=== PATIENT | male | born 1945 | race Caucasian/White ===

== ENCOUNTER → 2016-08-12 | Outpatient (CLI) | payer MEDICARE ==
[~2016-08-12] MED LIST: ALBU6.7H INH; ASPI81CH CHEW; ASPI81TA82 PO; B COTAB7 PO; BACT800T5 PO; BUME2TAB PO; BUSP30TA PO; CARA0.5C; DICL1GEL7 TOPICAL; DICLCRY TOPICAL; DUONI NEB; EQL400TA PO; FLUT1INH7 INH; FOLI400T PO; GLIP5 PO; GLIP5TAB8 PO; GLUC1000 PO; IPRASOL INH; JANT2.5T PO; LACTCAP8 PO; LORTA5 PO; LOSA25TA PO; LOSA25TA31 PO; METF1000 PO; METO100T PO; METO50TA PO; METO5TAB3 PO; METO5TAB46 PO; MONT10 PO; MONT10TA4 PO; MULT-315 PO; MULTTAB50 PO; OMEP20TA PO; PANT40TA3 PO; POTA-243 PO; POTA10CA PO; PROBCAP4 PO; PROT40TA PO; ROSU1TAB8 PO; ROSU20 PO; SYMB160A INH; TIZA4 PO; VITA250T3 PO; VITACAP7 PO; WARF-23 PO; WARF2.5T40 PO; WARF5TAB PO; WELL150T PO; ZOFR8TAB PO
--- NOTE | 2016-08-19 10:43 | RSPPFT ---
DATE OF PROCEDURE: 08/12/16 COMMENTS: VOLUMES DYNAMIC: FVC and FEV1 mildly reduced. STATIC: FRC, TLC mildly reduced; RV normal. FLOWS: FEV1% mildly reduced; FEF 25-75 moderately reduced. DIFFUSION: Moderately reduced. FLOW VOLUME LOOP: Pattern of variable intrathoracic airways obstruction. IMPRESSION: Mild obstructive ventilatory defect with a mild to moderate reduction in diffusion and no significant hyperinflation. A mild co-existent restrictive defect is present and no improvement post-bronchodilator.
== END ==
LOC: HRSP 07:55
PROVIDERS: ATTEND Internal Medicine
DX: J45.909 Unspecified asthma, uncomplicated (principal); R05 Cough
CPT/HCPCS: 94060; 94620; 94726; 94729; 95012

== ENCOUNTER 2016-08-23 21:13 | Emergency (ER) | payer MEDICARE ==
[~2016-08-23] VITALS: Ht 188 cm; Wt 100.0 kg
[~2016-08-23 21:13] MED LIST changes: -ASPI81CH CHEW; -BACT800T5 PO; -BUSP30TA PO; -CARA0.5C; -DICL1GEL7 TOPICAL; -FLUT1INH7 INH; -FOLI400T PO; -GLIP5TAB8 PO; -IPRASOL INH; -JANT2.5T PO; -LACTCAP8 PO; -LOSA25TA PO; -METF1000 PO; -METO50TA PO; -METO5TAB3 PO; -MONT10TA4 PO; -MULT-315 PO; -OMEP20TA PO; -PANT40TA3 PO; -POTA10CA PO; -ROSU1TAB8 PO; -VITA250T3 PO; -VITACAP7 PO; -WARF-23 PO
[2016-08-23 21:15] VITALS: BP 146/74; PULSE 72; RESP 16; TEMP 97.3; O2SAT 94
[2016-08-23] MEDS ORDERED: METO5TAB3 PO (22:18)
[2016-08-23] MEDS ORDERED: GLIP5TAB8 PO (22:18)
[2016-08-23] MEDS ORDERED: BUSP30TA PO (22:18)
[2016-08-23] MEDS ORDERED: JANT2.5T PO (22:18)
[2016-08-23] MEDS ORDERED: BUME2TAB PO (22:18)
[2016-08-23] MEDS ORDERED: ASPI81CH CHEW (22:18)
[2016-08-23] MEDS ORDERED: FOLI400T PO (22:27)
[2016-08-23] MEDS ORDERED: MONT10TA4 PO (22:27)
[2016-08-23] MEDS ORDERED: CARA0.5C (22:27)
[2016-08-23] MEDS ORDERED: VITA250T3 PO (22:27)
[2016-08-23] MEDS ORDERED: POTA10CA PO (22:27)
[2016-08-23] MEDS ORDERED: IPRASOL INH (22:27)
[2016-08-23] MEDS ORDERED: METO50TA PO (22:27)
[2016-08-23] MEDS ORDERED: DICL1GEL7 TOPICAL (22:27)
[2016-08-23] MEDS ORDERED: MULT-315 PO (22:27)
[2016-08-23] MEDS ORDERED: LOSA25TA PO (22:27)
[2016-08-23] MEDS ORDERED: FLUT1INH7 INH (22:27)
[2016-08-23] MEDS ORDERED: ALBU6.7H INH (22:27)
[2016-08-23] MEDS ORDERED: OMEP20TA PO (22:27)
[2016-08-23] MEDS ORDERED: LACTCAP8 PO (22:27)
[2016-08-23] MEDS ORDERED: VITACAP7 PO (22:27)
[2016-08-23] MEDS ORDERED: PANT40TA3 PO (22:27)
[2016-08-23] MEDS ORDERED: ROSU1TAB8 PO (22:27)
[2016-08-23] MEDS ORDERED: BACT800T5 PO (22:30)
--- NOTE | 2016-08-23 22:35 | PD ---
HPI Chief Complaint: Injury Time Seen by Provider: 22:30 Travel History International Travel<30 days: No Contact w/Intl Traveler<30days: No Traveled to known affect area: No History of Present Illness HPI 70-year-old male that presents to the ED for evaluation of possible laceration to the right foot. Per patient he is a diabetic and he has neuropathy. Per patient he went to his normal occurrence on his diabetic shoes and when he was going to bed tonight he noticed that he had a little bleeding. Patient noted that he had a small cut on the dorsal aspect of his foot that was bleeding. He denies any actual injury. He denies any foreign body. He denies any pain. He states that he was concerned because of the bleeding. He does take Coumadin. He denies any other injuries. Up-to-date with his tetanus. 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 PFSH Past Medical History Hx Anticoagulant Therapy: Yes Arthritis: No Asthma: Yes Atrial Fibrillation: Yes Bipolar Disorder: Yes Anxiety: Yes Depression: Yes Heart Rhythm Problems: Yes Cancer: Yes (SKIN CANCER LEFT CHEEK 2013) Cardiac Catheterization: Yes (STENTS PLACED) Cardiovascular Problems: Yes (IN , MITRAL VALVE REPLACEMENT, CABG) High Cholesterol: Yes Chemotherapy: No Chest Pain: Yes Congestive Heart Failure: Yes COPD: Yes Diabetes: Yes (NON INSULIN DEPENDENT) Patient Takes Glucophage: Yes Diminished Hearing: Yes Endocrine: Yes Gastrointestinal Disorders: Yes (PAST LIVER ABNORMALITIES FROM DRINKING, PROBLEMS RESOLVE) GERD: No Hiatal Hernia: No Hypertension: Yes Immune Disorder: No Implanted Vascular Access Dvce: Yes Musculoskeletal: Yes (LT WRIST PAIN, ARTHRITIS) Neurologic: Yes (DIABETIC FOOT NEUROPATHY TOMAS.) Psychiatric: Yes (BIPOLAR--DX 1978) Respiratory: Yes (COPD, ASTHMA, COUGH) Immunizations Current: Yes Myocardial Infarction: Yes Radiation Therapy: No Thyroid Disease: No Ulcer: No Past Surgical History Abdominal Surgery: Yes (HERNIA REPAIR 2006) Body Medical Devices: MITRAL VALVE Cardiac Surgery: Yes (RWilbur VILLANUEVAARY BIPASS ) Coronary Artery Bypass Graft: Yes (X2; 2002) Joint Replacement: No Oral Surgery: Yes (#3 MOLAR EXTRACTED, HOLE IN SINUS, PAST INFECTION IN SINUSES ) Pacemaker: Yes (rt chest, [facility] COPY ON CHART) Thoracic Surgery: Yes Valve Replacement: Yes (MITRAL X2) Other Surgery: Yes (HERNIAS, BROKE R. LEG ) Social History Alcohol Use: No Tobacco Use: No Substance Use: No Allergies-Medications (Allergen,Severity, Reaction): Coded Allergies: Morphine (Verified Adverse Reaction, Severe, Nausea/Vomiting, 08/23/16) Carvedilol (Verified Adverse Reaction, Intermediate, Vertigo, 08/23/16) Reported Meds & Prescriptions Reported Meds & Active Scripts Active Reported Carac (Fluorouracil (Topical)) 0.5 % Cre Diclofenac Topical 1% Gel 1 Applic TOPICAL QID Duoneb (Ipratropium-Albuterol Neb) 0.5-2.5 Mg/3 Ml Neb 1 Nebule INH DAILY Proventil Hfa 6.7 GM Inh (Albuterol Sulfate) 90 Mcg/Act Aer 2 Puff INH Q4-6H PRN Breo Ellipta Inh (Fluticasone/Vilanterol) 200-25 Mcg/Act Inh 1 Puff INH DAILY Use daily at the same time. Vitamin C (Ascorbic Acid) 250 Mg Tab 1,000 Mg PO DAILY Men 50 Plus Multivitamin Tab (Multivit-Min/FA/Lycopen/Lutein) 1 Each Tablet 1 Tab PO DAILY B Complex (B-Complex Vitamins) 1 Cap 1 Cap PO DAILY Probiotic (Lactobacillus Acidophilus) 1 Cap Cap 1 Cap PO DAILY Folic Acid 400 Mcg Tab 400 Mcg PO DAILY Rosuvastatin (Rosuvastatin Calcium) 20 Mg Tab 20 Mg PO DAILY Potassium Chloride ER (Potassium Chloride) 10 Meq Cap 10 Meq PO DAILY Omeprazole 20 Mg Tab 20 Mg PO DAILY Pantoprazole (Pantoprazole Sodium) 40 Mg Tab 40 Mg PO DAILY Montelukast (Montelukast Sodium) 10 Mg Tab 10 Mg PO HS Metoprolol Tartrate 50 Mg Tab 50 Mg PO BID Losartan (Losartan Potassium) 25 Mg Tab 25 Mg PO DAILY Jantoven (Warfarin) 2.5 Mg Tab 2.5 Mg PO DAILY Glipizide 5 Mg Tab 2.5 Mg PO BIDAC Take 30 minutes before a meal Buspirone (Buspirone HCl) 30 Mg Tab 150 Mg PO S,T,THRUS, SAT Metolazone 5 Mg Tab 5 Mg PO DAILY Bumetanide 2 Mg Tab 2 Mg PO DAILY Aspirin 81 Mg Chew 81 Mg CHEW DAILY Review of Systems Except as stated in HPI: all other systems reviewed are Neg Physical Exam Narrative GENERAL: SKIN: Warm and dry. Patient has a very superficial less than a quarter centimeter small laceration with what appears to be venous bleed. Stops with pressure blood even after a couple minutes of pressure it rebleeds as the pressure is removed. HEAD: Atraumatic. Normocephalic. EYES: Pupils equal and round. No scleral icterus. No injection or drainage. ENT: No nasal bleeding or discharge. Mucous membranes pink and moist. NECK: Trachea midline. No JVD. CARDIOVASCULAR: Regular rate and rhythm. No murmurs, S3, S4. RESPIRATORY: No accessory muscle use. Clear to auscultation. Breath sounds equal bilaterally. GASTROINTESTINAL: Abdomen soft, non-tender, nondistended. Hepatic and splenic margins not palpable. MUSCULOSKELETAL: Extremities without clubbing, cyanosis, or edema. No obvious deformities. NEUROLOGICAL: Awake and alert. No obvious cranial nerve deficits. Motor grossly within normal limits. Five out of 5 muscle strength in the arms and legs. Normal speech. PSYCHIATRIC: Appropriate mood and affect; insight and judgment normal. Data Data Last Documented VS Vital Signs Date Time Temp Pulse Resp B/P Pulse Ox O2 Delivery O2 Flow Rate FiO2 08/23/16 21:15 97.3 72 16 146/74 94 Room Air [facility] Medical Decision Making Medical Screen Exam Complete: Yes Emergency Medical Condition: Yes Medical Record Reviewed: Yes Differential Diagnosis Laceration versus varicose vein bleed versus bleeding Narrative Course 70-year-old male that presents to the ED for evaluation of bleeding. Patient was properly examined and was found to have signs and symptoms very consistent with a very small superficial cut to varicose vein. Likely from his shoes. Patient does have some bleeding. I do recommend putting a suture to stop the bleeding. Patient is negative with this plan. After explained procedure to the patient and she agreed to it laceration was repaired as stated in procedure note. Patient was told to suture will do so on its own. Patient was given a prescription for Bactrim to cover for bacterial infection but only to use if he develops any signs of infection secondary to his history of diabetes. Patient was told to follow with his crossing supervisor. Wound care was endorsed. Follow with PCP. See ED for any worsening symptoms. Procedures Procedure Narrative LACERATION LOCATION: dorsal foot LENGTH: 0.25 cm NUMBER OF STITCHES/DAKOTA: 2 sutures REPAIR: The area of the laceration was prepped with Betadine and sterilely draped. The laceration was infiltrated with 1% Xylocaine. The wound was copiously irrigated and explored without evidence of foreign body, tendon injury or neurovascular injury. The wound was closed using 4-0 Vycril. This was a 1 layer repair. A sterile dressing was applied. The patient was advised to keep the dressing clean and dry. Patient tolerated the procedure well. Diagnosis Primary Impression: Foot laceration Qualified Code: S91.311A - Foot laceration, right, initial encounter Patient Instructions: General Instructions Additional Instructions: Change dressings daily. Apply pressure dressing to the wound. Follow with your crossing supervisor. Only take antibiotic extensive infection develop. See ED if worsening symptoms. Med/Other Pt SpecificInfo: Prescription(s) given Scripts Sulfamethoxazole-Trimethoprim (Bactrim DS)800-160 Mg Tab1 Tab PO BID 7 Days Prov:Suzette Jiménez MD 08/23/16 Disposition: 01 DISCHARGE HOME Condition: Stable Nilay Celaya Aug 23, 2016 22:35
== END 2016-08-23 23:34 | disposition home or self-care (01) ==
LOC: NEPD 21:13
DX: S91.311A Laceration without foreign body, right foot, initial encounter (principal); E11.40 Type 2 diabetes mellitus with diabetic neuropathy, unspecified; I10 Essential (primary) hypertension; I50.9 Heart failure, unspecified; I25.2 Old myocardial infarction; X58.XXXA Exposure to other specified factors, initial encounter; Z79.01 Long term (current) use of anticoagulants
CPT/HCPCS: 12001

== ENCOUNTER → 2016-09-07 | Outpatient (CLI) | payer MEDICARE ==
[~2016-09-07] MED LIST changes: +ASPI81CH CHEW; -ASPI81TA82 PO; -B COTAB7 PO; +BACT800T5 PO; +BUSP30TA PO; +CARA0.5C; +DICL1GEL7 TOPICAL; -DICLCRY TOPICAL; -DUONI NEB; -EQL400TA PO; +FLUT1INH7 INH; +FOLI400T PO; -GLIP5 PO; +GLIP5TAB8 PO; -GLUC1000 PO; +IPRASOL INH; +JANT2.5T PO; +LACTCAP8 PO; -LORTA5 PO; +LOSA25TA PO; -LOSA25TA31 PO; +METF1000 PO; -METO100T PO; +METO50TA PO; +METO5TAB3 PO; -METO5TAB46 PO; -MONT10 PO; +MONT10TA4 PO; +MULT-315 PO; -MULTTAB50 PO; +OMEP20TA PO; +PANT40TA3 PO; -POTA-243 PO; +POTA10CA PO; -PROBCAP4 PO; -PROT40TA PO; +ROSU1TAB8 PO; -ROSU20 PO; -SYMB160A INH; -TIZA4 PO; +VITA250T3 PO; +VITACAP7 PO; +WARF-23 PO; -WARF2.5T40 PO; -WARF5TAB PO; -WELL150T PO; -ZOFR8TAB PO
[2016-09-07 08:37] LABS: BICARBONATE 35.4 MEQ/L (21.0-32.0)
[2016-09-07 08:44] LABS: POTASSIUM 2.8 MEQ/L (3.5-5.1)
== END ==
LOC: CLAB 08:00
PROVIDERS: ATTEND Nuclear Medicine Nuclear Cardiology
DX: I50.9 Heart failure, unspecified (principal); I48.91 Unspecified atrial fibrillation; I10 Essential (primary) hypertension; Z79.899 Other long term (current) drug therapy
CPT/HCPCS: 36415; 80048; 83880

== ENCOUNTER → 2016-09-10 | Outpatient (CLI) | payer MEDICARE ==
[2016-09-10 07:50] LABS: AUTOMATED NEUTROPHIL # 7.1 TH/MM3 (1.8-7.7); BASOPHIL # 0.1 TH/MM3 (0-0.2); BASOPHIL % 0.8 % (0.0-2.0); EOSINOPHIL # 0.3 TH/MM3 (0-0.4); EOSINOPHIL % 3.1 % (0.0-4.0); HEMATOCRIT 43.7 % (39.0-51.0); HEMO FLAGS DIFF FINAL; LYMPH % 12.8 % (9.0-44.0); LYMPHOCYTE # 1.3 TH/MM3 (1.0-4.8); MEAN CELL VOLUME 78.2 FL (80.0-100.0); MEAN CORPUSCULAR HEMOGLOBIN 26.4 PG (27.0-34.0); MEAN CORPUSCULAR HGB CONC 33.7 % (32.0-36.0); MONO % 13.1 % (0.0-8.0); NEUT % 70.2 % (16.0-70.0); PLATELET COUNT 309 TH/MM3 (150-450); RED BLOOD COUNT 5.59 MIL/MM3 (4.50-5.90); RED CELL DISTRIBUTION WIDTH 14.8 % (11.6-17.2); WHITE BLOOD COUNT 10.1 TH/MM3 (4.0-11.0)
[2016-09-10 08:22] LABS: ALT (GPT) 41 U/L (12-78); ANION GAP 7 MEQ/L (5-15); AST (GOT) 28 U/L (15-37); BICARBONATE 35.5 MEQ/L (21.0-32.0); BLOOD UREA NITROGEN 21 MG/DL (7-18); CHLORIDE 96 MEQ/L (98-107); GLOMERULAR FILTRATION RATE 68 ML/MIN (>89); GLUCOSE,FASTING 120 MG/DL (74-99); SODIUM (NA) 138 MEQ/L (136-145)
[2016-09-10 08:54] LABS: ALKALINE PHOSPHATASE 72 U/L (45-117); FREE T4 1.31 NG/DL (0.76-1.46); TOTAL BILIRUBIN ADULT 0.6 MG/DL (0.2-1.0)
== END ==
LOC: CLAB 07:26
PROVIDERS: ATTEND Nuclear Medicine Nuclear Cardiology
DX: R53.83 Other fatigue (principal); R63.4 Abnormal weight loss; I50.9 Heart failure, unspecified; I10 Essential (primary) hypertension; I48.91 Unspecified atrial fibrillation; Z79.899 Other long term (current) drug therapy
CPT/HCPCS: 36415; 80053; 82607; 83880; 84439; 84443; 85025

== ENCOUNTER 2016-09-14 08:19 | Observation (INO) | payer MEDICARE ==
[2016-09-14] VITALS (9 sets, daily range): BP systolic 102–144; BP diastolic 62–99; PULSE 87–102; RESP 16–22; TEMP 96.1–97.8; O2SAT 89–98
[~2016-09-14] VITALS: Ht 188 cm; Wt 95.0 kg
[~2016-09-14 08:19] MED LIST changes: -METF1000 PO; -WARF-23 PO
--- NOTE | 2016-09-14 08:45 | PD ---
HPI Chief Complaint: Chest Pain Time Seen by Provider: 08:32 Travel History International Travel<30 days: No Contact w/Intl Traveler<30days: No Traveled to known affect area: No History of Present Illness HPI 70-year-old male complains of chest pain. Patient states that the chest pain started around 2 AM. Patient states the pain is pressure pain across anterior chest. Patient denies any pain radiation. Patient denies palpitation diaphoresis. Patient states that he has intermittent nausea for the past week. Patient states that the chest pain is not associated with exertion. Patient came to see Dr. Fox, his clinical partner this morning. Patient was advised to go to ED for evaluation. Patient has history hypertension, diabetes, hyperlipidemia. Patient has history TX, status post stent placement, CABG, mitral valve replacement and pacer placement. Patient also has history of COPD. Patient is on Coumadin and aspirin 81 mg daily. PFSH Past Medical History Hx Anticoagulant Therapy: Yes (warfarin, asa) Arthritis: No Asthma: Yes Atrial Fibrillation: Yes Bipolar Disorder: Yes Anxiety: Yes Depression: Yes Heart Rhythm Problems: Yes Cancer: Yes (SKIN CANCER LEFT CHEEK 2013) Cardiac Catheterization: Yes (STENTS PLACED) Cardiovascular Problems: Yes (htn,TX, stent, r coronary bypass, mitral valve replacement; pacer) High Cholesterol: Yes Chemotherapy: No Chest Pain: Yes Congestive Heart Failure: Yes COPD: Yes Diabetes: Yes (metformin) Diminished Hearing: Yes Endocrine: Yes Gastrointestinal Disorders: Yes (PAST LIVER ABNORMALITIES FROM DRINKING, PROBLEMS RESOLVE) GERD: No Hiatal Hernia: No Hypertension: Yes Immune Disorder: No Implanted Vascular Access Dvce: Yes Musculoskeletal: Yes (LT WRIST PAIN, ARTHRITIS) Neurologic: Yes (DIABETIC FOOT NEUROPATHY TOMAS.) Psychiatric: Yes (BIPOLAR--DX 1978) Respiratory: Yes (asthma, copd) Immunizations Current: Yes Myocardial Infarction: Yes Radiation Therapy: No Thyroid Disease: No Ulcer: No Past Surgical History Abdominal Surgery: Yes (HERNIA REPAIR 2006) Body Medical Devices: MITRAL VALVE Cardiac Surgery: Yes (R. CORNARY BIPASS ) Coronary Artery Bypass Graft: Yes (X2; 2002) Joint Replacement: No Oral Surgery: Yes (#3 MOLAR EXTRACTED, HOLE IN SINUS, PAST INFECTION IN SINUSES ) Pacemaker: Yes (rt chest, [employer] [facility] COPY ON CHART) Thoracic Surgery: Yes Valve Replacement: Yes (MITRAL X2) Other Surgery: Yes (HERNIAS, BROKE R. LEG ) Social History Alcohol Use: No Tobacco Use: No Substance Use: No Allergies-Medications (Allergen,Severity, Reaction): Coded Allergies: Morphine (Verified Adverse Reaction, Severe, Nausea/Vomiting, 09/14/16) Carvedilol (Verified Adverse Reaction, Intermediate, Vertigo, 09/14/16) Reported Meds & Prescriptions Reported Meds & Active Scripts Active Reported Carac (Fluorouracil (Topical)) 0.5 % Cre Diclofenac Topical 1% Gel 1 Applic TOPICAL QID Duoneb (Ipratropium-Albuterol Neb) 0.5-2.5 Mg/3 Ml Neb 1 Nebule INH DAILY Proventil Hfa 6.7 GM Inh (Albuterol Sulfate) 90 Mcg/Act Aer 2 Puff INH Q4-6H PRN Breo Ellipta Inh (Fluticasone/Vilanterol) 200-25 Mcg/Act Inh 1 Puff INH DAILY Use daily at the same time. Vitamin C (Ascorbic Acid) 250 Mg Tab 1,000 Mg PO DAILY Men 50 Plus Multivitamin Tab (Multivit-Min/FA/Lycopen/Lutein) 1 Each Tablet 1 Tab PO DAILY B Complex (B-Complex Vitamins) 1 Cap 1 Cap PO DAILY Probiotic (Lactobacillus Acidophilus) 1 Cap Cap 1 Cap PO DAILY Folic Acid 400 Mcg Tab 400 Mcg PO DAILY Rosuvastatin (Rosuvastatin Calcium) 20 Mg Tab 20 Mg PO DAILY Potassium Chloride ER (Potassium Chloride) 10 Meq Cap 10 Meq PO DAILY Omeprazole 20 Mg Tab 20 Mg PO DAILY Pantoprazole (Pantoprazole Sodium) 40 Mg Tab 40 Mg PO DAILY Montelukast (Montelukast Sodium) 10 Mg Tab 10 Mg PO HS Metoprolol Tartrate 50 Mg Tab 50 Mg PO BID Losartan (Losartan Potassium) 25 Mg Tab 25 Mg PO DAILY Jantoven (Warfarin) 2.5 Mg Tab 2.5 Mg PO DAILY Glipizide 5 Mg Tab 2.5 Mg PO BIDAC Take 30 minutes before a meal Buspirone (Buspirone HCl) 30 Mg Tab 150 Mg PO S,T,THRUS, SAT Metolazone 5 Mg Tab 5 Mg PO DAILY Bumetanide 2 Mg Tab 2 Mg PO DAILY Aspirin 81 Mg Chew 81 Mg CHEW DAILY Review of Systems General / Constitutional: No: Fever Eyes: No: Visual changes HENT: No: Headaches Cardiovascular: Positive: Chest Pain or Discomfort Respiratory: No: Shortness of Breath Gastrointestinal: No: Abdominal Pain Genitourinary: No: Dysuria Musculoskeletal: No: Pain Skin: No Rash Neurologic: No: Weakness Psychiatric: No: Depression Endocrine: No: Polydipsia Hematologic/Lymphatic: No: Easy Bruising Physical Exam Narrative GENERAL: Well-nourished, well-developed patient. SKIN: Focused skin assessment warm/dry. HEAD: Normocephalic. EYES: No scleral icterus. No injection or drainage. NECK: Supple, trachea midline. No JVD or lymphadenopathy. CARDIOVASCULAR: Regular rate and rhythm without murmurs, gallops, or rubs. RESPIRATORY: Breath sounds equal bilaterally. No accessory muscle use. GASTROINTESTINAL: Abdomen soft, non-tender, nondistended. MUSCULOSKELETAL: No cyanosis, or edema. BACK: Nontender without obvious deformity. No CVA tenderness. Neurologic exam normal. Data Data Last Documented VS Vital Signs Date Time Temp Pulse Resp B/P Pulse Ox O2 Delivery O2 Flow Rate FiO2 09/14/16 08:22 97.8 92 16 144/87 95 Orders Electrocardiogram (09/14/16 08:39) Complete Blood Count With Diff (09/14/16 08:39) Comprehensive Metabolic Panel (09/14/16 08:39) Creatine Kinase (Cpk) (09/14/16 08:39) Troponin I (09/14/16 08:39) B-Type Natriuretic Peptide (09/14/16 08:39) Prothrombin Time / Inr (Pt) (09/14/16 08:39) Act Partial Throm Time (Ptt) (09/14/16 08:39) Chest, Single Ap (09/14/16 08:39) Iv Access Insert/Monitor (09/14/16 08:39) Ecg Monitoring (09/14/16 08:39) Oximetry (09/14/16 08:39) Labs Laboratory Tests Test 09/14/16 09:20 White Blood Count 11.5 TH/MM3 Red Blood Count 5.59 MIL/MM3 Hemoglobin 14.6 GM/DL Hematocrit 43.3 % Mean Corpuscular Volume 77.4 FL Mean Corpuscular Hemoglobin 26.1 PG Mean Corpuscular Hemoglobin 33.8 % Concent Red Cell Distribution Width 15.0 % Platelet Count 313 TH/MM3 Mean Platelet Volume 7.1 FL Neutrophils (%) (Auto) 72.2 % Lymphocytes (%) (Auto) 13.0 % Monocytes (%) (Auto) 11.5 % Eosinophils (%) (Auto) 2.8 % Basophils (%) (Auto) 0.5 % Neutrophils # (Auto) 8.3 TH/MM3 Lymphocytes # (Auto) 1.5 TH/MM3 Monocytes # (Auto) 1.3 TH/MM3 Eosinophils # (Auto) 0.3 TH/MM3 Basophils # (Auto) 0.1 TH/MM3 CBC Comment DIFF FINAL Differential Comment Prothrombin Time 21.8 SEC Prothromb Time International 1.9 RATIO Ratio Activated Partial 35.2 SEC Thromboplast Time Sodium Level 135 MEQ/L Potassium Level 2.6 MEQ/L Chloride Level 93 MEQ/L Carbon Dioxide Level 32.8 MEQ/L Anion Gap 9 MEQ/L Blood Urea Nitrogen 27 MG/DL Creatinine 1.34 MG/DL Estimat Glomerular Filtration 53 ML/MIN Rate Random Glucose 88 MG/DL Calcium Level 9.3 MG/DL Total Bilirubin 0.6 MG/DL Aspartate Amino Transf 30 U/L (AST/SGOT) Alanine Aminotransferase 46 U/L (ALT/SGPT) Alkaline Phosphatase 72 U/L Total Creatine Kinase 235 U/L Troponin I LESS THAN 0.02 NG/ML B-Type Natriuretic Peptide 39 PG/ML Total Protein 7.4 GM/DL Albumin 4.0 GM/DL [facility] Medical Decision Making Medical Screen Exam Complete: Yes Emergency Medical Condition: Yes Interpretation(s) Last Impressions Chest X-Ray 09/14/16 0839 Signed Impressions: Service Date/Time: Wednesday, September 14, 2016 08:55 - CONCLUSION: 1. Improved left lower lobe pleural-parenchymal opacities. 2. Mild right lower lobe airspace disease, likely atelectasis. Wayne Delgadillo MD 11 AM. CBC WBC 11.5. 72 neutrophil. Potassium 2.6. Cardiac enzymes are normal. Differential Diagnosis Differential diagnosis including angina, TX, PE, pneumothorax. Narrative Course 70-year-old male with chest pain. History of CAD. KCl 40 mEq by mouth given. KCl 20 mEq IV given. Diagnosis Primary Impression: Chest pain Qualified Code: R07.9 - Chest pain, unspecified type Additional Impression: Hypokalemia Admitting Information Admitting Physician Requests: Observation Kev Zepeda MD Sep 14, 2016 08:45
--- NOTE | 2016-09-14 09:33 | RADRPT ---
EXAM DATE/TIME: 09/14/2016 08:55 [facility] COMPARISON: CHEST SINGLE AP, February 23, 2015, 1:05. INDICATIONS : Pain and pressure in upper, anterior chest since 2am today, short of breath MEDICAL HISTORY : Chronic obstructive pulmonary disease. SURGICAL HISTORY : CABG. Pacemaker. valve replacement ENCOUNTER: Initial ACUITY: 1 day PAIN SCORE: 7/10 LOCATION: Bilateral chest FINDINGS: There is a stable left-sided single lead pacemaker. Postsurgical features of median sternotomy and ca rdiac valve replacement. There is improved left lower lobe pleural-parenchymal opacities. Mild right lower lobe airspace disease likely reflects atelectasis. Cardiac silhouette is mildly enlarged. Remai nder of the exam is unchanged. CONCLUSION: 1. Improved left lower lobe pleural-parenchymal opacities. 2. Mild right lower lobe airspace disease, likely atelectasis. Wayne Delgadillo MD on September 14, 2016 at 9:29 Board Certified Radiologist. This report was verified electronically.
[2016-09-14 09:42] LABS: AUTOMATED NEUTROPHIL # 8.3 TH/MM3 (1.8-7.7); BASOPHIL # 0.1 TH/MM3 (0-0.2); BASOPHIL % 0.5 % (0.0-2.0); EOSINOPHIL # 0.3 TH/MM3 (0-0.4); EOSINOPHIL % 2.8 % (0.0-4.0); HEMATOCRIT 43.3 % (39.0-51.0); HEMO FLAGS DIFF FINAL; LYMPHOCYTE # 1.5 TH/MM3 (1.0-4.8); MEAN CELL VOLUME 77.4 FL (80.0-100.0); MEAN CORPUSCULAR HEMOGLOBIN 26.1 PG (27.0-34.0); MEAN CORPUSCULAR HGB CONC 33.8 % (32.0-36.0); MONO % 11.5 % (0.0-8.0); NEUT % 72.2 % (16.0-70.0); PLATELET COUNT 313 TH/MM3 (150-450); RED BLOOD COUNT 5.59 MIL/MM3 (4.50-5.90); WHITE BLOOD COUNT 11.5 TH/MM3 (4.0-11.0)
[2016-09-14 09:50] LABS: APTT (PATIENT) 35.2 SEC (24.3-30.1); INTERNATIONAL NORMALIZED RATIO 1.9 RATIO; PROTHROMBIN TIME - PATIENT 21.8 SEC (9.8-11.6)
[2016-09-14 10:07] LABS: ALKALINE PHOSPHATASE 72 U/L (45-117); ALT (GPT) 46 U/L (12-78); ANION GAP 9 MEQ/L (5-15); AST (GOT) 30 U/L (15-37); BICARBONATE 32.8 MEQ/L (21.0-32.0); BLOOD UREA NITROGEN 27 MG/DL (7-18); CHLORIDE 93 MEQ/L (98-107); CREATINE KINASE 235 U/L (39-308); GLOMERULAR FILTRATION RATE 53 ML/MIN (>89); SODIUM (NA) 135 MEQ/L (136-145); TOTAL BILIRUBIN ADULT 0.6 MG/DL (0.2-1.0)
[2016-09-14 10:43] LABS: POTASSIUM 2.6 MEQ/L (3.5-5.1)
[2016-09-14] MEDS ORDERED: POTASSIUM CHLORIDE 20 MEQ CONTROLLED RELEASE TAB PO ONE (11:00)
[2016-09-14] MEDS ORDERED: POTASSIUM CHLOR 20 MEQ PREMIX 100 ML IV ONE (11:00)
[2016-09-14] MEDS ORDERED: SODIUM CHLORIDE 0.9% FLUSH 10 ML FLUSH IV FLUSH PRN (11:15)
[2016-09-14] MEDS ORDERED: ONDANSETRON HCL 4 MG/2 ML VIAL IV PRN (11:15)
[2016-09-14] MEDS ORDERED: ACETAMINOPHEN 500 MG CPLT PO PRN (11:15)
[2016-09-14] MEDS ORDERED: NITROGLYCERIN 0.4 MG SL 25 TABS/BTL SL PRN (11:15)
[2016-09-14 13:14] LABS: CREATINE KINASE 195 U/L (39-308)
[2016-09-14 13:26] LABS: CKMB 6.6 NG/ML (0.5-3.6)
[2016-09-14] MEDS ORDERED: METF1000 PO (14:30)
[2016-09-14] MEDS ORDERED: POTA10CA PO (14:33)
[2016-09-14] MEDS ORDERED: WARF-23 PO (14:41)
--- NOTE | 2016-09-14 14:41 | HHI.HP ---
[facility] Primary Care Physician iVn Vargas M.D. Chief Complaint Chest pressure History of Present Illness 70-year-old male with significant cardiovascular disease including CABG x1, mitral valve replacement 2 (2009 & 2014), COPD, hypertension, diabetes, and hyperlipidemia presents to emergency room for further evaluation chest pressure. Onset 2 AM upon awakening. Pain did not wake him from sleep. Location substernal characterized as pressure. Pain has been constant, waxing and waning in intensity. No associated nausea, vomiting, or diaphoresis. Endorses chronic shortness of breath not worsened chest pressure episode necessarily. No particular movements or position makes pain better or worse. Deep breathing does not make the pain better or worse. No known precipitating or relieving factors. 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 He notified the nurse of his chest pressure and they directed him to come to the ER. Review of Systems General: No fatigue,weakness, fever, or chills. illness change in appetite. HEENT: Intermittent headache over the past 10 days. No current headache. No nasal congestion or drainage. No dysphasia. CV: As stated above. Continues to have "mild" chest pressure. No palpitations. States Dr. Palomo recently has instructed him to take potassium pill twice daily and to increase his diet of potassium. RESP: Reports in the last week to 10 days his breathing has became worse due to the increase in heat and humidity. Noticed he becomes short of breath after 3 minutes of conversation, therefore over the past week he has been "taking it easy." He does not use home O2. No increase in shortness of breath. Chronic cough no change in sputum. No wheeze wheeze or hemoptysis. History of COPD. GI: No nausea, vomiting, bowel changes, diarrhea, constipation, pain, distention , melena, blood in the stool. No unintentional weight gain or weight loss. : No dysuria, urgency, frequency EXT: No lower leg edema, no paraesthesias MS: No discomfort or change in ROM NEURO: No difficulty with balance, LOC, motor/sensory deficits PSYCH: No anxiety, depression SKIN: No rashes, no concerning lesions Past Family Social History Allergies: Coded Allergies: Morphine (Verified Adverse Reaction, Severe, Nausea/Vomiting, 09/14/16) Carvedilol (Verified Adverse Reaction, Intermediate, Vertigo, 6/27/17) Past Medical History Hypertension, [id number] diabetes, hyperlipidemia, coronary artery disease, COPD, A. fib, diabetic neuropathy Past Surgical History CABG 1, mitral valve replaced 2 (2009 & 2014), pacemaker, right leg surgery steel plate and 7 screws, umbilical hernia repair, inguinal hernia repair, left forearm surgery Reported Medications Active Reported Potassium Chloride ER (Potassium Chloride) 10 Meq Cap 10 Meq PO BID Metformin (Metformin HCl) 1,000 Mg Tab 1,000 Mg PO BID With meals Carac (Fluorouracil (Topical)) 0.5 % Cre Diclofenac Topical 1% Gel 1 Applic TOPICAL QID Duoneb (Ipratropium-Albuterol Neb) 0.5-2.5 Mg/3 Ml Neb 1 Nebule INH DAILY Proventil Hfa 6.7 GM Inh (Albuterol Sulfate) 90 Mcg/Act Aer 2 Puff INH Q4-6H PRN Breo Ellipta Inh (Fluticasone/Vilanterol) 200-25 Mcg/Act Inh 1 Puff INH DAILY Use daily at the same time. Men 50 Plus Multivitamin Tab (Multivit-Min/FA/Lycopen/Lutein) 1 Each Tablet 1 Tab PO DAILY B Complex (B-Complex Vitamins) 1 Cap 1 Cap PO DAILY Probiotic (Lactobacillus Acidophilus) 1 Cap Cap 1 Cap PO DAILY Folic Acid 400 Mcg Tab 400 Mcg PO DAILY Rosuvastatin (Rosuvastatin Calcium) 20 Mg Tab 20 Mg PO DAILY Omeprazole 20 Mg Tab 20 Mg PO DAILY Metoprolol Tartrate 50 Mg Tab 50 Mg PO BID Losartan (Losartan Potassium) 25 Mg Tab 25 Mg PO DAILY Jantoven (Warfarin) 2.5 Mg Tab 2.5 Mg PO DAILY Glipizide 5 Mg Tab 2.5 Mg PO BIDAC Take 30 minutes before a meal Buspirone (Buspirone HCl) 30 Mg Tab 150 Mg PO S,T,THRUS, SAT Metolazone 5 Mg Tab 5 Mg PO DAILY Aspirin 81 Mg Chew 81 Mg CHEW DAILY Bumetanide 2mg PO BID Active Ordered Medications Current Medications Medications (Trade) Dose Ordered Sig/Scout Route Start Time Stop Time Status Last Admin (Tylenol) 500 mg Q4H PRN PO 09/14/16 11:15 (Zofran Inj) 4 mg Q6H PRN IV 09/14/16 11:15 (Nitrostat Sl) 0.4 mg Q5M PRN SL 09/14/16 11:15 (KCl) 20 meq Q12HR PO 09/14/16 21:00 Social History Known CAD, hypertension, diabetes, and hyperlipidemia. Quit smoking 1969. Denies any alcohol or illegal drug use. Quit drinking alcohol 2003. Ambulates with a cane. Past cardiac testing No recent stress testing. 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 Palomo. 01/2015 last cardiac catheterization completed in [facility] per Dr. Palomo. Physical Exam Vital Signs Vital Signs Date Time Temp Pulse Resp B/P Pulse Ox O2 Delivery O2 Flow Rate FiO2 09/14/16 14:27 97.4 98 20 105/73 98 09/14/16 13:52 93 09/14/16 13:23 90 18 140/99 94 09/14/16 12:51 102 20 109/77 95 Nasal Cannula 2 09/14/16 12:45 20 89 Room Air 09/14/16 08:22 97.8 92 16 144/87 95 Physical Exam GENERAL: Alert WN, WD, NAD, pleasant, male HEAD: NC, AT EYES: Sclera clear, conjunctiva without injection, pupils equal and round ENT: Mucous membranes pink and moist NECK: Supple, no masses, trachea midline CV: RRR, without murmur, rub, gallop, no JVD, S1-S2 no S3-S4. RESP: No crackles or wheeze. Bilateral upper lobes rhonchi. Symmetrical chest rise, mildly labored after conversation, is able to speak in full sentences, prolonged expiratory phase. ABD: Soft, NT, ND, no masses, positive bowel tones EXT: Pulses +14, no dependent edema MS: Normal tone 4 extremities, nontender, no obvious deformities, full range of motion NEURO: CN II through CN XII grossly intact, motor strength 5/5, gait WNL PSYCH: A+O 3, pleasant affect, appropriate speech, appropriate mood and affect , insight and judgment SKIN: Normal turgor, normal texture, no lesions, no rashes, sluggish cap refill , even hair distribution, bilateral lower leg discoloration appears to be venous stasis Laboratory Laboratory Tests Test 09/14/16 09/14/16 09:20 12:25 White Blood Count 11.5 Red Blood Count 5.59 Hemoglobin 14.6 Hematocrit 43.3 Mean Corpuscular Volume 77.4 Mean Corpuscular Hemoglobin 26.1 Mean Corpuscular Hemoglobin 33.8 Concent Red Cell Distribution Width 15.0 Platelet Count 313 Mean Platelet Volume 7.1 Neutrophils (%) (Auto) 72.2 Lymphocytes (%) (Auto) 13.0 Monocytes (%) (Auto) 11.5 Eosinophils (%) (Auto) 2.8 Basophils (%) (Auto) 0.5 Neutrophils # (Auto) 8.3 Lymphocytes # (Auto) 1.5 Monocytes # (Auto) 1.3 Eosinophils # (Auto) 0.3 Basophils # (Auto) 0.1 CBC Comment DIFF FINAL Differential Comment Prothrombin Time 21.8 Prothromb Time International 1.9 Ratio Activated Partial 35.2 Thromboplast Time Sodium Level 135 Potassium Level 2.6 Chloride Level 93 Carbon Dioxide Level 32.8 Anion Gap 9 Blood Urea Nitrogen 27 Creatinine 1.34 Estimat Glomerular Filtration 53 Rate Random Glucose 88 Calcium Level 9.3 Total Bilirubin 0.6 Aspartate Amino Transf 30 (AST/SGOT) Alanine Aminotransferase 46 (ALT/SGPT) Alkaline Phosphatase 72 Total Creatine Kinase 235 195 Troponin I LESS THAN 0.02 LESS THAN 0.02 B-Type Natriuretic Peptide 39 Total Protein 7.4 Albumin 4.0 Creatine Kinase MB 6.6 Result Diagram: 09/14/1691909/14/16919 Imaging Last Impressions Chest X-Ray 09/14/16 0839 Signed Impressions: Service Date/Time: Wednesday, September 14, 2016 08:55 - CONCLUSION: 1. Improved left lower lobe pleural-parenchymal opacities. 2. Mild right lower lobe airspace disease, likely atelectasis. Wayne Delgadillo MD Course EKG A. fib, intraventricular conduction delay Assessment and Plan Assessment and Plan #1 Chest painadmitted to chest pain center. Ruled out with 3 sets of EKGs and cardiac enzymes. Will be seen and evaluated by Dr. Isis Clark. All his been placed to patient's computer science intern, , for further recommendation. #2 CHFcontinue Bumex #3 [id number] mEq by mouth and IV replacement initiated in ER. Potassium 20 mEq twice a day. Recheck BMP was afternoon and in a.m. #4 Coronary artery diseasecontinue aspirin, metoprolol, losartan,rosuvastatin #5 Diabetes type 2continue metformin and glipizide, diabetic diet #6 GERDcontinue omeprazole #7 COPDcontinue Breo Ellipta inhaler, albuterol every 2 hours when necessary as needed #8 Subtherapeutic INR-Coumadin 4mg x1 dose tonight, then continue Coumadin 2.5mg daily. Follow up with INR clinic upon discharge. 15:10 returned call received from Dr[address] Palomo. Community Educator requesting nuclear study and replace potassium accordingly. Last potassium on 09/10/16 was 3.0. and on 09/07/16 was 2.8. Maribell Kowalski Sep 14, 2016 14:41
[2016-09-14] MEDS ORDERED: RESP: ALBUTEROL 2.5 MG/3 ML NEB (PRN) NEB (15:00)
[2016-09-14] MEDS ORDERED: PILL SPLITTER OTHER PRN (15:15)
[2016-09-14 16:05] LABS: CREATINE KINASE 169 U/L (39-308)
[2016-09-14] MEDS ORDERED: WARFARIN SOD 4 MG TAB PO ONE (17:15)
[2016-09-14] MEDS: metFORMIN HCL 500 MG TAB PO SCH (18:06)
[2016-09-14] MEDS: glipiZIDE 5 MG TAB PO SCH (18:06)
[2016-09-14 18:16] LABS: BICARBONATE 32.3 MEQ/L (21.0-32.0)
[2016-09-14 18:32] LABS: POTASSIUM 2.8 MEQ/L (3.5-5.1)
[2016-09-14] MEDS ORDERED: POTASSIUM CHLORIDE 10 MEQ CAP PO SCH (21:00)
[2016-09-14] MEDS ORDERED: SODIUM CHLORIDE 0.9% FLUSH 10 ML FLUSH IV FLUSH SCH (21:00)
[2016-09-14] MEDS ORDERED: METOPROLOL TARTRATE 50 MG TAB PO SCH (21:00)
[2016-09-14] MEDS: POTASSIUM CHLORIDE 20 MEQ CONTROLLED RELEASE TAB PO SCH (21:16)
[2016-09-15 00:04] VITALS: BP 110/63; PULSE 64; RESP 18; TEMP 97.9; O2SAT 92; O2SAT 95
[2016-09-15 03:54] VITALS: BP 104/72; PULSE 66; RESP 18; TEMP 98.5; O2SAT 86
[2016-09-15 06:20] LABS: BICARBONATE 31.9 MEQ/L (21.0-32.0); POTASSIUM 3.3 MEQ/L (3.5-5.1)
[2016-09-15] MEDS: glipiZIDE 5 MG TAB PO SCH (07:00)
[2016-09-15 07:32] VITALS: BP 111/65; PULSE 71; RESP 17; TEMP 97.3; O2SAT 96
[2016-09-15 08:03] VITALS: O2SAT 95
[2016-09-15] MEDS ORDERED: METOLAZONE 5 MG TAB PO SCH (09:00)
[2016-09-15] MEDS ORDERED: ATORVASTATIN 40 MG TAB PO SCH (09:00)
[2016-09-15] MEDS ORDERED: FLUTICASONE 200 MCG/VILANTEROL 25 MCG INHALER INH SCH (09:00)
[2016-09-15] MEDS ORDERED: FOLIC ACID 1 MG TAB PO SCH (09:00)
[2016-09-15] MEDS ORDERED: MULTIVITAMINS/MINERALS THERAPEUTIC TAB PO SCH (09:00)
[2016-09-15] MEDS ORDERED: PANTOPRAZOLE SOD 20 MG DELAYED RELEASE TAB PO SCH (09:00)
[2016-09-15] MEDS: metFORMIN HCL 500 MG TAB PO SCH (09:00)
[2016-09-15] MEDS ORDERED: LOSARTAN 25 MG TAB PO SCH (09:00)
[2016-09-15] MEDS ORDERED: REGADENOSON INJ 0.4 MG/5 ML SYR ONE (09:21)
[2016-09-15] MEDS: POTASSIUM CHLORIDE 20 MEQ CONTROLLED RELEASE TAB PO SCH (10:24)
[2016-09-15 11:18] VITALS: BP 118/65; PULSE 74; RESP 18; TEMP 97.3; O2SAT 93
--- NOTE | 2016-09-15 12:19 | RADRPT ---
EXAM DATE/TIME: 09/15/2016 08:52 [facility] COMPARISON: No previous studies available for comparison. INDICATIONS : Substernal chest pain for 1 day. Angina. Myocardial infarction. DOSE: 25.6 mCi Tc99m Myoview at stress. 8.1 mCi Tc99m Myoview at rest. 0.4 mg Lexiscan STRESS SYMPTOMS: Shortness of breath. EJECTION FRACTION: 48% MEDICAL HISTORY : Cardiovascular disease. Diabetes mellitus type 2. Hypertension. SURGICAL HISTORY : Inguinal hernia repair. CABG Right leg. ENCOUNTER: Initial ACUITY: 1 day PAIN SCALE: 2/10 LOCATION: Substernal chest TECHNIQUE: The patient underwent pharmacologic stress with infusion of prescribed dose. Continuous ECG tracing was monitored during stress. Gated SPECT imaging was performed after stress and conventional SPECT i maging was performed at rest. The examination was performed on a SPECT/CT scanner, both attenuation and non-corrected datasets were reviewed. FINDINGS: The best perfused myocardium at stress is the anterior wall followed by the septum. Moderate gut acti vity does obscure the inferior wall. There is no redistribution to suggest ischemia. Ejection fraction is 48% with minimal inferior wall hypokinesis. CONCLUSION: Negative for stress-induced ischemia RISK CATEGORY: Low (<1% Annual Mortality Rate) Esteban Li MD FACR on September 15, 2016 at 12:05 Board Certified Radiologist. This report was verified electronically.
--- NOTE | 2016-09-15 12:37 | HHI.DCPOC ---
Discharge Care Plan Diagnosis: (1) Chest pain (2) CAD (coronary artery disease) (3) Hypokalemia (4) H/O mitral valve replacement with tissue graft (5) DM (diabetes mellitus) (6) COPD (chronic obstructive pulmonary disease) (7) History of CHF (congestive heart failure) Goals to Promote Your Health * To prevent worsening of your condition and complications * To maintain your health at the optimal level Directions to Meet Your Goals Take your medications as prescribed Follow your dietary instruction Follow activity as directed Keep your appointments as scheduled Take your immunizations and boosters as scheduled If your symptoms worsen call your PCP, if no PCP go to Urgent Care Center or Emergency Room Smoking is Dangerous to Your Health. Avoid second hand smoke Call the 24-hour hour crisis hotline for domestic abuse at Maksim Bedoya Sep 15, 2016 12:37
[2016-09-15] MEDS ORDERED: WARFARIN SOD 2.5 MG TAB PO SCH (16:00)
--- NOTE | 2016-09-15 16:15 | EKG ---
Date Performed: 09/14/2016 Time Performed: 12:47:23 PTAGE: 70 years EKG: ATRIAL FIBRILLATION INTRAVENTRICULAR CONDUCTION DELAY INFERIOR MYOCARDIAL INFARCTION ABNORM AL ECG PREVIOUS TRACING : 09/14/2016 09.13 Since previous tracing, no significant change noted DOCTOR: Torres Bee Interpretating Date/Time 09/15/2016 16:15:07
--- NOTE | 2016-09-15 16:15 | EKG ---
Date Performed: 09/14/2016 Time Performed: 15:31:12 PTAGE: 70 years EKG: ATRIAL FIBRILLATION LEFT BUNDLE BRANCH BLOCK ABNORMAL ECG PREVIOUS TRACING : 09/14/2016 12.47 Since previous tracing, no significant change noted DOCTOR: Torres Bee Interpretating Date/Time 09/15/2016 16:14:54
--- NOTE | 2016-09-15 16:16 | EKG ---
Date Performed: 09/14/2016 Time Performed: 09:13:25 PTAGE: 70 years EKG: ATRIAL FIBRILLATION WITH RAPID VENTRICULAR RESPONSE LEFT BUNDLE BRANCH BLOCK ABNORMAL ECG PREVIOUS TRACING : 12/09/2015 11.56 Since previous tracing, no significant change noted DOCTOR: Torres Bee Interpretating Date/Time 09/15/2016 16:15:24
--- NOTE | 2016-09-15 16:18 | TR ---
Date Performed: 09/15/2016 Time Performed: 09:34:45 DOCTOR: Torres Bee DRUG LIST: CLINICAL HISTORY: ANGINA REASON FOR TEST: Angina REASON FOR ENDING: OBSERVATION: CONCLUSION: Lexiscan stress test was performed under standard four minute protocol. Radionuclid e was injected one minute prior to ending the test. No electrocardiographic abormalities were present to suggest ischemia. Nuclear imaging and interpretation are pending. COMMENTS:
== END 2016-09-15 14:53 | disposition home or self-care (01) ==
LOC: NEPE 08:19 → NEDA 11:10 → NEPGCP 13:20
PROVIDERS: ADMIT Internal Medicine Interventional Cardiology; ATTEND Internal Medicine Interventional Cardiology
DX: R07.9 Chest pain, unspecified (principal); E87.6 Hypokalemia; I44.7 Left bundle-branch block, unspecified; R94.31 Abnormal electrocardiogram [ECG] [EKG]; R11.0 Nausea; I20.9 Angina pectoris, unspecified; R06.02 Shortness of breath; R91.8 Other nonspecific abnormal finding of lung field; R79.1 Abnormal coagulation profile; I25.10 Atherosclerotic heart disease of native coronary artery without angina pectoris; I11.0 Hypertensive heart disease with heart failure; I50.9 Heart failure, unspecified; E78.5 Hyperlipidemia, unspecified; E78.00 Pure hypercholesterolemia, unspecified; I25.2 Old myocardial infarction; I48.91 Unspecified atrial fibrillation; I45.9 Conduction disorder, unspecified; J44.9 Chronic obstructive pulmonary disease, unspecified; K21.9 Gastro-esophageal reflux disease without esophagitis; E11.40 Type 2 diabetes mellitus with diabetic neuropathy, unspecified; F41.9 Anxiety disorder, unspecified; F31.9 Bipolar disorder, unspecified; M19.032 Primary osteoarthritis, left wrist; H91.90 Unspecified hearing loss, unspecified ear; Z95.1 Presence of aortocoronary bypass graft; Z95.2 Presence of prosthetic heart valve; Z79.899 Other long term (current) drug therapy; Z79.84 Long term (current) use of oral hypoglycemic drugs; Z79.82 Long term (current) use of aspirin; Z87.891 Personal history of nicotine dependence; Z85.828 Personal history of other malignant neoplasm of skin
CPT/HCPCS: 71010; 78452; 80048; 80053; 82550; 82552; 83880; 84484; 85025; 85610; 85730; 93005; 93017; 99285; A9502; G0378; J2785; J3480

== ENCOUNTER → 2016-09-24 | Outpatient (CLI) | payer MEDICARE ==
[~2016-09-24] MED LIST changes: -BACT800T5 PO; -BUME2TAB PO; +METF1000 PO; -MONT10TA4 PO; -PANT40TA3 PO; -VITA250T3 PO; +WARF-23 PO
[2016-09-24 12:20] LABS: BICARBONATE 31.4 MEQ/L (21.0-32.0); POTASSIUM 3.5 MEQ/L (3.5-5.1)
== END ==
LOC: CLAB 11:40
PROVIDERS: ATTEND Nuclear Medicine Nuclear Cardiology
DX: E78.5 Hyperlipidemia, unspecified (principal); I10 Essential (primary) hypertension
CPT/HCPCS: 36415; 80048

== ENCOUNTER 2016-09-27 10:45 | Emergency (ER) | payer MEDICARE ==
[~2016-09-27] VITALS: Ht 188 cm; Wt 104.0 kg
[2016-09-27 10:47] VITALS: BP 169/93; PULSE 108; RESP 20; TEMP 97.4; O2SAT 96
[2016-09-27 11:18] VITALS: BP 137/99; PULSE 103; RESP 20; O2SAT 93
--- NOTE | 2016-09-27 11:25 | PD ---
HPI Chief Complaint: Medical Clearance Time Seen by Provider: 11:25 Travel History International Travel<30 days: No Contact w/Intl Traveler<30days: No Traveled to known affect area: No History of Present Illness HPI 70-year-old male with history of CVA, COPD, CAD, hypertension, A. fib, presents to the emergency department for evaluation. Patient is on oxygen at home. He states when he wakes up in the morning he typically has a lot of mucus and needs to cough. This morning he reports coughing up blood-tinged sputum and then wade red sputum. He has not had any episodes of this again since this morning but felt that he should come in to get evaluated. Denies any significant chest pain or tightness. No shortness of breath. No recent illnesses, fever, or chills. He has no other symptoms to report. PFSH Past Medical History Hx Anticoagulant Therapy: Yes (warfarin and asa) Arthritis: No Asthma: Yes Atrial Fibrillation: Yes Bipolar Disorder: Yes Anxiety: Yes Depression: Yes Heart Rhythm Problems: Yes Cancer: Yes (SKIN CANCER LEFT CHEEK 2013) Cardiac Catheterization: Yes (STENTS PLACED) Cardiovascular Problems: Yes (htn, CT; bypass) High Cholesterol: Yes Chemotherapy: No Chest Pain: Yes Congestive Heart Failure: Yes COPD: Yes Diabetes: Yes (metformin) Patient Takes Glucophage: No Diminished Hearing: Yes Endocrine: Yes Gastrointestinal Disorders: Yes GERD: No Genitourinary: Yes Hiatal Hernia: No Hypertension: Yes Immune Disorder: No Implanted Vascular Access Dvce: Yes Musculoskeletal: Yes Neurologic: Yes Psychiatric: Yes (BIPOLAR--DX 1978) Respiratory: Yes (asthma, copd) Immunizations Current: Yes Myocardial Infarction: Yes Radiation Therapy: No Thyroid Disease: No Ulcer: No Past Surgical History Abdominal Surgery: Yes (HERNIA REPAIR 2006) Body Medical Devices: MITRAL VALVE Cardiac Surgery: Yes (Waldo MATSON BIPASS ) Coronary Artery Bypass Graft: Yes (X2; 2002) Joint Replacement: No Oral Surgery: Yes Pacemaker: Yes (rt chest, [facility] COPY ON CHART) Thoracic Surgery: Yes Valve Replacement: Yes (MITRAL X2) Other Surgery: Yes Social History Alcohol Use: No Tobacco Use: No Substance Use: No Allergies-Medications (Allergen,Severity, Reaction): Coded Allergies: Morphine (Verified Adverse Reaction, Severe, Nausea/Vomiting, 09/27/16) Carvedilol (Verified Adverse Reaction, Intermediate, Vertigo, 09/27/16) Reported Meds & Prescriptions Reported Meds & Active Scripts Active Reported Warfarin 5 Mg Tab 5 Mg PO TUESDAY Potassium Chloride ER (Potassium Chloride) 10 Meq Cap 10 Meq PO BID Metformin (Metformin HCl) 1,000 Mg Tab 1,000 Mg PO BID With meals Carac (Fluorouracil (Topical)) 0.5 % Cre Diclofenac Topical 1% Gel 1 Applic TOPICAL QID Duoneb (Ipratropium-Albuterol Neb) 0.5-2.5 Mg/3 Ml Neb 1 Nebule INH DAILY Proventil Hfa 6.7 GM Inh (Albuterol Sulfate) 90 Mcg/Act Aer 2 Puff INH Q4-6H PRN Breo Ellipta Inh (Fluticasone/Vilanterol) 200-25 Mcg/Act Inh 1 Puff INH DAILY Use daily at the same time. Men 50 Plus Multivitamin Tab (Multivit-Min/FA/Lycopen/Lutein) 1 Each Tablet 1 Tab PO DAILY B Complex (B-Complex Vitamins) 1 Cap 1 Cap PO DAILY Probiotic (Lactobacillus Acidophilus) 1 Cap Cap 1 Cap PO DAILY Folic Acid 400 Mcg Tab 400 Mcg PO DAILY Rosuvastatin (Rosuvastatin Calcium) 20 Mg Tab 20 Mg PO DAILY Omeprazole 20 Mg Tab 20 Mg PO DAILY Metoprolol Tartrate 50 Mg Tab 50 Mg PO BID Losartan (Losartan Potassium) 25 Mg Tab 25 Mg PO DAILY Jantoven (Warfarin) 2.5 Mg Tab 2.5 Mg PO SUMOTUWETHSA Take 1 tablet (2.5mg) daily on Tuesday,Tuesday,Tuesday,Tuesday, and Tuesday Glipizide 5 Mg Tab 2.5 Mg PO BIDAC Take 30 minutes before a meal Buspirone (Buspirone HCl) 30 Mg Tab 150 Mg PO S,T,THRUS, SAT Metolazone 5 Mg Tab 5 Mg PO DAILY Aspirin 81 Mg Chew 81 Mg CHEW DAILY Review of Systems Except as stated in HPI: all other systems reviewed are Neg Physical Exam Narrative GENERAL: Well-nourished male patient, in no acute distress SKIN: Focused skin assessment warm/dry. HEAD: Atraumatic. Normocephalic. EYES: Pupils equal and round. No scleral icterus. No injection or drainage. ENT: No nasal bleeding or discharge. Mucous membranes pink and moist. No bloody drainage. No septal hematoma. NECK: Trachea midline. No JVD. CARDIOVASCULAR: Tachycardic rate and rhythm. No murmur appreciated. RESPIRATORY: No accessory muscle use. Diminished, coarse to auscultation. Breath sounds equal bilaterally. GASTROINTESTINAL: Abdomen soft, non-tender, nondistended. Hepatic and splenic margins not palpable. MUSCULOSKELETAL: No obvious deformities. No clubbing. No cyanosis. No edema. NEUROLOGICAL: Awake and alert. No obvious cranial nerve deficits. Motor grossly within normal limits. Normal speech. PSYCHIATRIC: Appropriate mood and affect; insight and judgment normal. Data Data Last Documented VS Vital Signs Date Time Temp Pulse Resp B/P Pulse Ox O2 Delivery O2 Flow Rate FiO2 09/27/16 15:13 100 20 142/88 94 Nasal Cannula 09/27/16 12:16 2 09/27/16 10:47 97.4 Orders Complete Blood Count With Diff (09/27/16 11:23) Basic Metabolic Panel (Bmp) (09/27/16 11:23) B-Type Natriuretic Peptide (09/27/16 11:23) Act Partial Throm Time (Ptt) (09/27/16 11:23) Prothrombin Time / Inr (Pt) (09/27/16 11:23) Ckmb (Isoenzyme) Profile (09/27/16 11:23) Troponin I (09/27/16 11:23) Iv Access Insert/Monitor (09/27/16 11:23) Electrocardiogram (09/27/16 11:23) Ecg Monitoring (09/27/16 11:23) Oximetry (09/27/16 11:23) Oxygen Administration (09/27/16 11:23) Chest, Single Ap (09/27/16 11:23) Ct Pulmonary Angiogram (09/27/16 11:23) Sodium Chloride 0.9% Flush (Ns Flush) (09/27/16 11:30) Albuterol-Ipratropium Neb (Duoneb Neb) (09/27/16 11:30) CKMB (09/27/16 11:35) CKMB% (09/27/16 11:35) Ondansetron Inj (Zofran Inj) (09/27/16 12:45) Iohexol 350 Inj (Omnipaque 350 Inj) (09/27/16 14:28) Labs Laboratory Tests Test 09/27/16 11:35 White Blood Count 11.8 TH/MM3 Red Blood Count 4.98 MIL/MM3 Hemoglobin 12.9 GM/DL Hematocrit 39.3 % Mean Corpuscular Volume 79.1 FL Mean Corpuscular Hemoglobin 26.0 PG Mean Corpuscular Hemoglobin 32.8 % Concent Red Cell Distribution Width 15.3 % Platelet Count 208 TH/MM3 Mean Platelet Volume 6.8 FL Neutrophils (%) (Auto) 77.4 % Lymphocytes (%) (Auto) 10.0 % Monocytes (%) (Auto) 9.5 % Eosinophils (%) (Auto) 2.2 % Basophils (%) (Auto) 0.9 % Neutrophils # (Auto) 9.2 TH/MM3 Lymphocytes # (Auto) 1.2 TH/MM3 Monocytes # (Auto) 1.1 TH/MM3 Eosinophils # (Auto) 0.3 TH/MM3 Basophils # (Auto) 0.1 TH/MM3 CBC Comment DIFF FINAL Differential Comment Prothrombin Time 20.6 SEC Prothromb Time International 1.8 RATIO Ratio Activated Partial 35.5 SEC Thromboplast Time Sodium Level 139 MEQ/L Potassium Level 3.8 MEQ/L Chloride Level 105 MEQ/L Carbon Dioxide Level 26.7 MEQ/L Anion Gap 7 MEQ/L Blood Urea Nitrogen 20 MG/DL Creatinine 1.11 MG/DL Estimat Glomerular Filtration 66 ML/MIN Rate Random Glucose 131 MG/DL Calcium Level 9.2 MG/DL Total Creatine Kinase 139 U/L Creatine Kinase MB 5.5 NG/ML Troponin I LESS THAN 0.02 NG/ML B-Type Natriuretic Peptide 118 PG/ML MDM Medical Decision Making Medical Screen Exam Complete: Yes Emergency Medical Condition: Yes Medical Record Reviewed: Yes Differential Diagnosis COPD exacerbation versus bronchial irritation versus epistaxis versus hemoptysis versus PE versus pulmonary edema Narrative Course 70-year-old male presents to the emergency department for evaluation onset of hemoptysis this morning patient patient appears without distress. He is initially tachycardic heart rate normalizes after IV fluid. He is on 2 L nasal cannula home. Laboratory Tests Test 09/27/16 11:35 White Blood Count 11.8 TH/MM3 Red Blood Count 4.98 MIL/MM3 Hemoglobin 12.9 GM/DL Hematocrit 39.3 % Mean Corpuscular Volume 79.1 FL Mean Corpuscular Hemoglobin 26.0 PG Mean Corpuscular Hemoglobin 32.8 % Concent Red Cell Distribution Width 15.3 % Platelet Count 208 TH/MM3 Mean Platelet Volume 6.8 FL Neutrophils (%) (Auto) 77.4 % Lymphocytes (%) (Auto) 10.0 % Monocytes (%) (Auto) 9.5 % Eosinophils (%) (Auto) 2.2 % Basophils (%) (Auto) 0.9 % Neutrophils # (Auto) 9.2 TH/MM3 Lymphocytes # (Auto) 1.2 TH/MM3 Monocytes # (Auto) 1.1 TH/MM3 Eosinophils # (Auto) 0.3 TH/MM3 Basophils # (Auto) 0.1 TH/MM3 CBC Comment DIFF FINAL Differential Comment Prothrombin Time 20.6 SEC Prothromb Time International 1.8 RATIO Ratio Activated Partial 35.5 SEC Thromboplast Time Sodium Level 139 MEQ/L Potassium Level 3.8 MEQ/L Chloride Level 105 MEQ/L Carbon Dioxide Level 26.7 MEQ/L Anion Gap 7 MEQ/L Blood Urea Nitrogen 20 MG/DL Creatinine 1.11 MG/DL Estimat Glomerular Filtration 66 ML/MIN Rate Random Glucose 131 MG/DL Calcium Level 9.2 MG/DL Total Creatine Kinase 139 U/L Creatine Kinase MB 5.5 NG/ML Troponin I LESS THAN 0.02 NG/ML B-Type Natriuretic Peptide 118 PG/ML Last Impressions Chest X-Ray 09/27/161122 Signed Impressions: Service Date/Time: Tuesday, September 27, 2016 11:33 - CONCLUSION: No acute cardiopulmonary disease. Attila Cerda MD CT Angiography 09/27/16 112 Signed Impressions: Service Date/Time: Tuesday, September 27, 2016 14:16 - CONCLUSION: 1. There is no evidence for PE for technique. 2. Stable lymph nodes within the mediastinum most likely benign and not significantly changed since 2013. 3. Improvement in previously seen air space process in both lungs with slight hazy opacities remaining bilaterally may be inflammatory process. Attila Cerda MD I discussed the findings with the patient. He'll be discharged at this time to follow-up with primary care provider. He agrees to return immediately with any acute worsening symptoms. Diagnosis Primary Impression: Hemoptysis Additional Impression: COPD (chronic obstructive pulmonary disease) Qualified Code: J44.9 - Chronic obstructive pulmonary disease, unspecified COPD type Referrals: Primary Care Physician Cargo Supervisor Patient Instructions: Acute Hemoptysis (DC), General Instructions Additional Instructions: Normal saline nasal spray may help to alleviate symptoms Continue treatment as already prescribed Follow-up with your assembler movement and primary care provider Return immediately to the emergency department with any acute worsening of symptoms Med/Other Pt SpecificInfo: No Change to Meds Disposition: 01 DISCHARGE HOME Condition: Stable Kindra Ruano Sep 27, 2016 11:25
[2016-09-27] MEDS ORDERED: SODIUM CHLORIDE 0.9% FLUSH 10 ML FLUSH IVF PRN (11:30)
[2016-09-27] MEDS: RESP: ALBUTEROL 2.5 MG/IPRATROPIUM 0.5 MG NEB (SCH) INH ×2 (11:46→11:47)
[2016-09-27 11:48] LABS: AUTOMATED NEUTROPHIL # 9.2 TH/MM3 (1.8-7.7); BASOPHIL # 0.1 TH/MM3 (0-0.2); BASOPHIL % 0.9 % (0.0-2.0); EOSINOPHIL # 0.3 TH/MM3 (0-0.4); EOSINOPHIL % 2.2 % (0.0-4.0); HEMATOCRIT 39.3 % (39.0-51.0); HEMO FLAGS DIFF FINAL; LYMPHOCYTE # 1.2 TH/MM3 (1.0-4.8); MEAN CELL VOLUME 79.1 FL (80.0-100.0); MEAN CORPUSCULAR HGB CONC 32.8 % (32.0-36.0); MONO % 9.5 % (0.0-8.0); NEUT % 77.4 % (16.0-70.0); PLATELET COUNT 208 TH/MM3 (150-450); RED BLOOD COUNT 4.98 MIL/MM3 (4.50-5.90); RED CELL DISTRIBUTION WIDTH 15.3 % (11.6-17.2); WHITE BLOOD COUNT 11.8 TH/MM3 (4.0-11.0)
[2016-09-27 11:57] LABS: APTT (PATIENT) 35.5 SEC (24.3-30.1); INTERNATIONAL NORMALIZED RATIO 1.8 RATIO; PROTHROMBIN TIME - PATIENT 20.6 SEC (9.8-11.6)
[2016-09-27 12:06] LABS: ANION GAP 7 MEQ/L (5-15); BICARBONATE 26.7 MEQ/L (21.0-32.0); BLOOD UREA NITROGEN 20 MG/DL (7-18); CHLORIDE 105 MEQ/L (98-107); GLOMERULAR FILTRATION RATE 66 ML/MIN (>89); POTASSIUM 3.8 MEQ/L (3.5-5.1); SODIUM (NA) 139 MEQ/L (136-145)
[2016-09-27 12:10] LABS: CREATINE KINASE 139 U/L (39-308)
[2016-09-27 12:16] VITALS: PULSE 92; RESP 20; O2SAT 94
[2016-09-27 12:22] LABS: CKMB 5.5 NG/ML (0.5-3.6)
--- NOTE | 2016-09-27 12:27 | RADRPT ---
EXAM DATE/TIME: 09/27/2016 11:33 [facility] COMPARISON: CHEST SINGLE AP, September 14, 2016, 8:55. INDICATIONS : Shortness of breath. Patient states he coughed up blood this morning. MEDICAL HISTORY : Cardiovascular disease. Diabetes mellitus type 2. Hypertension SURGICAL HISTORY : Pacemaker. CABG. Valve replacement. ENCOUNTER: Initial ACUITY: 1 day PAIN SCORE: 0/10 LOCATION: Bilateral chest FINDINGS: The lungs are clear without infiltrate, nodule, or mass. There is no appreciable pleural effusion fo r technique. Heart and mediastinum are unremarkable. There is evidence for prior median sternotomy. Right subclavian pacer wir is present with tips in the right atrium and right ventricle. CONCLUSION: No acute cardiopulmonary disease. Attila Cerda MD on September 27, 2016 at 12:23 Board Certified Radiologist. This report was verified electronically.
[2016-09-27] MEDS ORDERED: ONDANSETRON HCL 4 MG/2 ML VIAL IV PUSH ONE (12:45)
[2016-09-27] MEDS ORDERED: IOHEXOL 350 MG/ML 10 ML VIAL (for RAD DIAG) IV ONE (14:28)
--- NOTE | 2016-09-27 14:57 | RADRPT ---
EXAM DATE/TIME: 09/27/2016 14:16 [place] COMPARISON: CTA CHEST W 3D RECON, January 15, 2014, 21:21. INDICATIONS : Coughing up blood. IV CONTRAST: 75 cc Omnipaque 350 (iohexol) IV RADIATION DOSE: 23.38 CTDIvol (mGy) MEDICAL HISTORY : Cardiovascular disease. Hypertension. Chronic obstructive pulmonary disease.Diabetes SURGICAL HISTORY : CABG ENCOUNTER: Initial ACUITY: 1 day PAIN SCALE: 3/10 LOCATION: chest TECHNIQUE: Volumetric scanning of the chest was performed using a pulmonary embolism protocol MIP images were re constructed. Using automated exposure control and adjustment of the mA and/or kV according to patien t size, radiation dose was kept as low as reasonably achievable to obtain optimal diagnostic quality images. DICOM format image data is available electronically for review and comparison. FINDINGS: There is improvement in previous is seen areas of airspace process in both lungs with residual v ague hazy opacity remaining the left lower lobe, posterior portion of lingula and parts of the right middle lobe since the prior CT angiogram from 12/2013. There are multiple lymph nodes in the mediasti num, bilateral hilar and the largest one measures 2.6 cm in size not significantly changed. Coronary artery calcifications are seen typically seen with CAD and need to be evaluated clinically. There is no evidence for PE for technique. CONCLUSION: 1. There is no evidence for PE for technique. 2. Stable lymph nodes within the mediastinum most likely benign and not significantly changed since 2 014. 3. Improvement in previously seen air space process in both lungs with slight hazy opacities remainin g bilaterally may be inflammatory process. Attila Cerda MD on September 27, 2016 at 14:51 Board Certified Radiologist. This report was verified electronically.
[2016-09-27 15:13] VITALS: BP 142/88; PULSE 100; RESP 20; O2SAT 94
--- NOTE | 2016-09-28 11:40 | EKG ---
Date Performed: 09/27/2016 Time Performed: 11:49:33 PTAGE: 70 years EKG: ATRIAL FIBRILLATION with a ventricular rate of 99 beats per minute Nonspecific intraventric ular conduction delay Possible slight ST elevation laterally new compared to the prior tracing Clinic al correlation needed ABNORMAL ECG PREVIOUS TRACING : 09/14/2016 15.31 DOCTOR: Orlin Langley Interpretating Date/Time 09/28/2016 11:39:14
== END 2016-09-27 15:43 | disposition home or self-care (01) ==
LOC: NEPC 10:45
DX: R04.2 Hemoptysis (principal); I48.91 Unspecified atrial fibrillation; J44.9 Chronic obstructive pulmonary disease, unspecified; I25.10 Atherosclerotic heart disease of native coronary artery without angina pectoris; I10 Essential (primary) hypertension; F31.9 Bipolar disorder, unspecified; I50.9 Heart failure, unspecified; E11.9 Type 2 diabetes mellitus without complications; R94.31 Abnormal electrocardiogram [ECG] [EKG]
CPT/HCPCS: 71010; 71275; 80048; 82550; 82552; 83880; 84484; 85025; 85610; 85730; 93005; 94640; 94664; 96374; 99285; J2405; Q9967

== ENCOUNTER → 2016-09-29 | Outpatient (CLI) | payer MEDICARE | LOC: HRAD 12:21 | PROVIDERS: ATTEND Internal Medicine | DX: J45.909 Unspecified asthma, uncomplicated (principal); R06.02 Shortness of breath | CPT/HCPCS: 94620 ==

== ENCOUNTER → 2016-10-01 | Outpatient (CLI) | payer MEDICARE ==
[2016-10-01 13:55] LABS: BICARBONATE 28.1 MEQ/L (21.0-32.0)
== END ==
LOC: CLAB 13:13
PROVIDERS: ATTEND Nuclear Medicine Nuclear Cardiology
DX: E78.5 Hyperlipidemia, unspecified (principal); I10 Essential (primary) hypertension
CPT/HCPCS: 36415; 80048

== ENCOUNTER → 2016-10-08 | Outpatient (CLI) | payer MEDICARE | LOC: CLAB 09:48 | PROVIDERS: ATTEND Nuclear Medicine Nuclear Cardiology | DX: E78.5 Hyperlipidemia, unspecified (principal); I10 Essential (primary) hypertension | CPT/HCPCS: 36415; 84132 ==

== ENCOUNTER → 2016-10-15 | Outpatient (CLI) | payer MEDICARE | LOC: CLAB 13:59 | PROVIDERS: ATTEND Family Medicine | DX: E78.5 Hyperlipidemia, unspecified (principal); I10 Essential (primary) hypertension | CPT/HCPCS: 36415; 84132 ==

== ENCOUNTER 2017-03-16 06:41 | Day surgery (SDC) | payer MEDICARE ==
[~2017-03-16] VITALS: Ht 188 cm; Wt 100.1 kg
[~2017-03-16 06:41] MED LIST changes: +ASPI-516 CHEW; -ASPI81CH CHEW; -OMEP20TA PO; +OMEP20TA93 PO
[2017-03-16] MEDS ORDERED: NS 1000 ML IV SCH (07:00)
[2017-03-16] MEDS ORDERED: LACTATED RINGER'S 1000 ML IV PRN (07:15)
[2017-03-16] MEDS ORDERED: POVIDONE IODINE 5% (ANTISEPSIS KIT) 4 APPLICATIONS EACH NARE PRN (07:15)
[2017-03-16] MEDS ORDERED: CHLORHEXIDINE GLUCONATE 2 % 1 PACK (2 CLOTHS) TOPICAL PRN (07:15)
[2017-03-16] MEDS ORDERED: SODIUM CHLORID 0.9% 500 ML IV PRN (07:15)
[2017-03-16] MEDS ORDERED: METOPROLOL TARTRATE 25 MG TAB PO PRN (07:15)
[2017-03-16] MEDS ORDERED: PROPOFOL 200 MG/20 ML AMP ONE (07:29)
[2017-03-16] MEDS ORDERED: MUPIROCIN 2% OINT 1 APPLIC/GM SYR NASAL SCH (07:30)
[2017-03-16] MEDS ORDERED: VANCOMYCIN 1000 MG/NS 250 ML IV SCH ×2 (07:30)
[2017-03-16] MEDS ORDERED: CHLORHEXIDINE GLUCONATE 2 % 1 PACK (2 CLOTHS) TOPICAL SCH (07:30)
[2017-03-16] MEDS ORDERED: ceFAZolin 2 GM PREMIX 50 ML IV SCH (07:30)
[2017-03-16] MEDS ORDERED: POVIDONE IODINE 5% (ANTISEPSIS KIT) 4 APPLICATIONS EACH NARE SCH (07:30)
[2017-03-16 07:37] VITALS: BP 145/88; PULSE 74; RESP 18; TEMP 98.2; O2SAT 95
[2017-03-16 07:45] LABS: AUTOMATED NEUTROPHIL # 6.5 TH/MM3 (1.8-7.7); BASOPHIL # 0.1 TH/MM3 (0-0.2); BASOPHIL % 1.1 % (0.0-2.0); EOSINOPHIL # 0.2 TH/MM3 (0-0.4); EOSINOPHIL % 2.3 % (0.0-4.0); HEMATOCRIT 41.1 % (39.0-51.0); HEMO FLAGS DIFF FINAL; LYMPH % 17.9 % (9.0-44.0); LYMPHOCYTE # 1.7 TH/MM3 (1.0-4.8); MEAN CELL VOLUME 80.1 FL (80.0-100.0); MEAN CORPUSCULAR HEMOGLOBIN 27.4 PG (27.0-34.0); MEAN CORPUSCULAR HGB CONC 34.2 % (32.0-36.0); MONO % 11.6 % (0.0-8.0); NEUT % 67.1 % (16.0-70.0); PLATELET COUNT 273 TH/MM3 (150-450); RED BLOOD COUNT 5.13 MIL/MM3 (4.50-5.90); RED CELL DISTRIBUTION WIDTH 15.3 % (11.6-17.2); WHITE BLOOD COUNT 9.6 TH/MM3 (4.0-11.0)
[2017-03-16] MEDS ORDERED: POTA-163 PO (07:45)
[2017-03-16] MEDS ORDERED: TIZA4CAP3 PO (07:45)
[2017-03-16] MEDS ORDERED: GLIP5TAB8 PO (07:45)
[2017-03-16] MEDS ORDERED: BUME2TAB PO (07:45)
[2017-03-16] MEDS ORDERED: METO25TA3 PO (07:45)
[2017-03-16] MEDS ORDERED: LOSA50TA PO (07:45)
[2017-03-16] MEDS ORDERED: ROSU1TAB10 PO (07:45)
[2017-03-16] MEDS ORDERED: IPRASOL INH (07:45)
[2017-03-16] MEDS ORDERED: MONT10TA4 PO (07:45)
[2017-03-16 07:52] LABS: APTT (PATIENT) 35.4 SEC (24.3-30.1); INTERNATIONAL NORMALIZED RATIO 1.8 RATIO; PROTHROMBIN TIME - PATIENT 17.9 SEC (9.8-11.6)
[2017-03-16 08:01] LABS: BICARBONATE 28.1 MEQ/L (21.0-32.0); POTASSIUM 3.9 MEQ/L (3.5-5.1)
[2017-03-16] MEDS ORDERED: LIDOCAINE HCL 2% 50 ML VIAL ONE (09:31)
[2017-03-16] MEDS ORDERED: VANCOMYCIN 500 MG VIAL ONE (09:31)
[2017-03-16] MEDS ORDERED: LEVA250T14 PO (10:15)
[2017-03-16] MEDS ORDERED: ACETAMINOPHEN 325 MG TAB PO PRN (10:30)
--- NOTE | 2017-03-16 10:33 | CATHPROC ---
[employer] HIS Report Study Information Study Number Admission Scheduled Start Study Start [id number] Mar 16 2017 6:41AM 03/16/2017 Mar 16 2017 7:52AM [place] Service Cardiac Pacer/ICD Admit Source Facility Department Other [facility] - Wedding Coordinator Physician and Clinical Staff Initial Oleksandr Hernandez Environmental Epidemiologist Rene Agarwal,RT(R) Environmental Epidemiologist Niecy Duenas,MANAGER FIBER Environmental Epidemiologist Nubia Guthrie,RESTAURANT COOK TECH2 Other Anesthesia, HOE RUNNER Recorder Abigail Rowell,RONEN Parkinsonub Vira Brady,RT(R) TECH2 Equipment Time Dev Technical Mgr Description Size Mfg Part Number Used/Scraped [id number] 07:57 [employer] SUTURE, STRIP PLUS 1/2" * Used *[id number] 07:57 MEDLINE PACER ADHESIVE, MASTISOL 2/3CC 2/3CC 0523-48 Used 07:57 MEDLINE PACER GUILLEN, LIMB * 2530 *[id number] Used [id number] 07:57 MEDLINE PACER PACK, PACER CUSTOM * Used *[id number] 07:57 MEDLINE PACER PEN, SKIN DUAL W/ RULER * Used *[id number] 09:46 Needle Sponge Count 2 2 Used 09:46 Needle Sponge Count 25 1 Used [id number] *[id number] SUTURE, 3-0 VICRYL [SH] ([id number]) SUTURE, 3-0 VICRYL [SH] ([id number]) SUTURE, 4-0 MONOCRYL [PS2] (Y496G) [id number] 07:57 [employer],WARM AIR CCL * Used *[id number] 10:05 [employer] [place] PACEMAKER, ACCENT SR VVI [id number] Used [facility] PAD, ELECTROSURGICAL 07:57 * [id number] *[id number] Used [employer] [id number] 07:57 [employer] [place]. / * Used *[id number] Equipment Model, Serial, Lot Number and Expiration Data Description Model Number Serial Number Lot Number Expiration Date PACEMAKER, ACCENT SR [id number] 03-20-2017 History: Allergies Allergy Reaction carvedilol Vertigo morphine Nausea/Vomiting History: Risk Factors Hypertension Dyslipidemia Previous PR Previous Heart Failure Yes Yes Yes Yes Prior Valve Prior PCI Prior CABG Surgery Yes Yes Yes Chronic Lung Diabetes Disease Yes Yes Labs Hgb (g/dl) Hct (%) RBC (MIL/MM3) WBC (l/cumm) Platelets (thousands) 11.60-17.00 35.00-51.00 4.00-5.90 4.00-11.00 150.00-450.00 14.0 41 5.1 9.6 273 INR (PTT:PT) 0.90-1.10 1.8 Medication Medication Total Dose (Bolus/Oral) Medication Total Dosage/Unit 2% XYLOCAINE 50 mL Medications (Bolus/Oral) Medication Time Given Dosage/Unit Administered By Reason 03/16/2017 10:00:22 2% XYLOCAINE 50 mL Anesthesia, HOE RUNNER AM 50 mL 2% XYLOCAINE given in lab by Anesthesia, HOE RUNNER in Right upper chest via Subcutaneous. Ordered by Oleksandr Nicole. Medication (Drip) Medication Time Given Dosage/Unit Concentration/Unit Diluent (ml) Solution ANCEF 03/16/2017 9:30:20 AM 1 g 1 g ANCEF given in lab by Anesthesia, HOE RUNNER via Peripheral IV. Ordered by Oleksandr Nicole. Reason: As per physicians verbal order. VANCOMYCIN DRIP 03/16/2017 9:30:39 AM 1 g 1 g VANCOMYCIN DRIP given in lab by Anesthesia, HOE RUNNER via Peripheral IV. Ordered by Oleksandr Nicole. Reas on: As per physicians verbal order. Initial Case Assessment Cardiovascular HR Rhythm NIBP Chest Pain 83 af 138/84 0 Edema Present Skin color Skin None Normal Warm Dry Circulatory - Right Pulses Dorsalis Pedis 1 Scale (0,1,2,3,4,d) Circulatory - Left Pulses Dorsalis Pedis 1 Scale (0,1,2,3,4,d) Circulatory - Lower Extremities Color Lower Right Color Lower Left Normal Normal Neurological State Oriented to time-place- Alert Moves all extremities person Respiration - General Respiration Rate SpO2 (%) (B/min) 16 100 Final Case Assessment Cardiovascular HR Rhythm NIBP Chest Pain 82 af/paced 115/59 0 Edema Present Skin color Skin None Normal Warm Dry Circulatory - Right Pulses Dorsalis Pedis 1 Scale (0,1,2,3,4,d) Circulatory - Left Pulses Dorsalis Pedis 1 Scale (0,1,2,3,4,d) Circulatory - Lower Extremities Color Lower Right Color Lower Left Normal Normal Neurological State Oriented to time-place- Alert Moves all extremities person Respiration - General Respiration Rate SpO2 (%) O2 (lpm) (B/min) 22 93 0 Chronological Log Time Study Chronological Log 9:20:50 Patient has been NPO for Less than 6Hrs. 9:20:50 Presedation assessment performed by Wedding Coordinator RN. 9:20:50 Verbal Stimulation=2 Physical Stimulation=2 Airway=2 Respiration=2 TOTAL=8. (0=absent, 1=li mited, 2=present) 9:20:50 Patient arrived via Bed. 9:20:50 Patient Name, D.O.B, / Armband Verified By R.N. 9:20:50 Consent signed by the physician and the patient and verified by the Wedding Coordinator staff. 9:20:51 History and physical on the chart. 9:20:54 Pre-op and post- op instructions given; patient acknowledges understanding of instructions. 9:20:55 Anesthesia at bedside. Assumes care of patient. 9:21:52 Skin Breakdown- ecchymotic spots over limbs and torso. 9:22:16 2% CHLORHEXIDINE GLUCONATE WASH AND NASAL SWIPE DONE PRIOR TO PROCEDURE. Assessment: Initial Case, HR=83 BPM, Rhythm=af, DWST=623/84 mmhg, Chest Pain=0, Edema=None, Col or=Normal, Skin = Warm, Dry Right Pulses: Jorgito Ped=1 Left Pulses: Jorgito Ped=1 9:25:06 Lower Right Extremities: Color=Normal Lower Left Extremities: Color=Normal Neurological: State=Alert, Ox3, CARDONA Respiration: Resp=16 B/min, AkP4=947 % 9:25:42 Patient Warmer Placed on the Table. 9:25:44 Disposable Defibrillator Pads Placed On Patient. 9:25:45 Garry Prominences Protected 9:25:51 A # 20 IV was noted in the Forearm (left). Grade = 0 0.9%NaCl at kvo. 9:26:16 A # 20 IV was noted in the Forearm (right). Grade = 0 0.9% NaCl at kvo. 9:26:23 Bovie ground pad applied to: left thigh. 1 g ANCEF given in lab by Anesthesia, HOE RUNNER via Peripheral IV. Ordered by Oleksandr Nicole. Reason: As per physicians 9:30:20 verbal order. 1 g VANCOMYCIN DRIP given in lab by Anesthesia, HOE RUNNER via Peripheral IV. Ordered by Oleksandr Nicole . Reason: As per 9:30:39 physicians verbal order. 9:35:01 Table restraints applied according to hospital policy First Sponge And Instrument Count Done by Nubia Guthrie RRT TECH2. 9:37:13 Hypo's: 2, Sponges: 25, Bovie/scratch: bovie/scratch Sutures: 4, Blades: 2, Instruments: 25, Syveck Patches: 0 verified by DC 9:40:08 Right Upper Chest Prepped Times Two. 9:47:44 Reference ECG taken 9:53:37 MD paged 9:54:31 MD responded 9:57:05 MD arrived. Time Out. Correct patient, procedure, procedure equipment, site and side verified with physicia n present. Time 10:00:00 concurred by MD, individual staff and HOE RUNNER. Time Out #2 - Consents verified, patient in correct position, all results are labled and displa yed, safety precautions 10:00:16 taken, antibiotics administered. Time out concurred by MD, individual staff and HOE RUNNER in procedu re 10:00:20 Case Start 50 mL 2% XYLOCAINE given in lab by Anesthesia, HOE RUNNER in Right upper chest via Subcutaneous. Orde red by Corey, 10:00:22 Oleksandr. 10:01:27 A pocket was created at the R Upper Chest. 10:01:55 The Device was taken out of the pocket. 10:02:34 New device placed into the pocket. 10:03:01 A PACEMAKER, ACCENT SR VVI was connected and placed in the pocket. Second Sponge And Instrument Count Done by Nubia Guthrie RRT TECH2. 10:03:13 Hypo's: 2, Sponges: 25, Bovie/scratch: bovie/scratch Sutures: 4, Blades: 2, Instruments: 25, Syveck Patches: 0 verified by DC 10:03:45 The pocket was closed. 10:07:48 Implant Procedure was performed. 10:07:58 A PPM Implant . (Single) Generator change. 10:08:51 Holding Area (DOCU) notified of successful intervention. 10:08:51 DOCU called. Spoke to Mindi. 10:08:52 Bedside Report will be given. 10:09:42 Implantable Device card placed in patient's chart. 10:13:20 Case End Final Sponge And Instrument Count Done by Nubia Guthrie RESTAURANT COOK TECH2. 10:25:03 Hypo's: 2, Sponges: 25, Bovie/scratch: bovie/scratch Sutures: 5, Blades: 2, Instruments: 25, Syveck Patches: 0 verified by DC. 1 suture added to ta ble after first count. Assessment: Final Case, HR=82 BPM, Rhythm=af/paced, PEPD=998/59 mmhg, Chest Pain=0, Edema=None , Color=Normal, Skin = Warm, Dry Right Pulses: Jorgito Ped=1 Left Pulses: Jorgito Ped=1 10:28:12 Lower Right Extremities: Color=Normal Lower Left Extremities: Color=Normal Neurological: State=Alert, Ox3, CARDONA Respiration: Resp=22 B/min, SpO2=93 %, O2=0 lpm 10:31:36 Defibrillator and ground pads removed. Skin intact. 10:31:48 Patient moved to stretcher 10:31:50 No case complications noted. 10:31:54 Cine recording checked. End Study - Contrast Media Used In Study Contrast Total Opened (mL) Total Used (mL) Total Wasted (mL) Unspecified 0 0 0 End Study - Radiation Exposure Fluoro Time (minutes) 0.3 End Study - Patient Disposition Complications Transferred To Interventional Outcome No Telemetry Bed successful
--- NOTE | 2017-03-16 14:03 | EKG ---
Date Performed: 03/16/2017 Time Performed: 07:44:02 PTAGE: 71 years EKG: Atrial fibrillation. IV conduction defect Abnormal ECG PREVIOUS TRACING : 09/27/2016 11.49 DOCTOR: Davi Berman Interpretating Date/Time 03/16/2017 14:02:32
--- NOTE | 2017-03-16 23:33 | MP ---
cc: NORBERTO ALFORD,CRISSY Wong MD DATE OF SURGERY: 03/16/2017 PROCEDURE: Pacemaker generator replacement. INDICATIONS: Pacemaker battery nearing end of life. OPERATIVE NOTE The patient was brought to the operating suite in a fasting state after having signed informed consent. The right upper chest was prepped and draped as per policy and anesthetized with 1% lidocaine. A transverse incision was made over the preexisting generator using a plasma blade and using careful dissection the generator was freed from the subcutaneous pocket. The lead was disconnected and then reconnected to the new generator which is a [employer] Ra it generalist. The lead has stable chronic sensing at 3.8 mV with a stimulation threshold of 1.0 volts. The lead and the generator were placed back into the subcutaneous pocket which was closed using 3-0 Vicryl interrupted stitches in two layers to close the subcutaneous tissue and then 4-0 Monocryl running stitch to close the subcuticular tissue. Overlapping Steri-Strips and a dressing were applied. There were no apparent immediate complications. CONCLUSION Successful pacemaker generator replacement using a St[employer] Ra pacemaker generator. MD WANG Odell/ALEXANDRA /10:10 AM /11:13 PM
== END 2017-03-16 12:45 | disposition home or self-care (01) ==
LOC: HDIC 06:41 → HDOC 06:41
PROVIDERS: ATTEND Internal Medicine Cardiovascular Disease
DX: Z45.010 Encounter for checking and testing of cardiac pacemaker pulse generator [battery] (principal); I11.0 Hypertensive heart disease with heart failure; I50.9 Heart failure, unspecified; I48.91 Unspecified atrial fibrillation; I25.10 Atherosclerotic heart disease of native coronary artery without angina pectoris; J45.909 Unspecified asthma, uncomplicated; E87.6 Hypokalemia; E78.00 Pure hypercholesterolemia, unspecified; I25.2 Old myocardial infarction; Z95.2 Presence of prosthetic heart valve
CPT/HCPCS: 00400; 33227; 80048; 85025; 85610; 85730; 93005; C1786; J0690; J3010; J3370; J7050